=== PATIENT | male | born 1975 | race Caucasian/White ===

== ENCOUNTER → 2018-11-16 | Day surgery (SDC) | payer OTHER ==
[~2018-11-16] MED LIST: ASPIRIN 81 MG CHEWABLE TAB PO ONE; ATROPINE SULFATE 1 MG/10 ML SYR IVP ONE; ATROPINE SULFATE 1 MG/10 ML SYR ONE; DILTIAZEM 25 MG/5 ML VIAL IVP ONE; MIDAZOLAM 2 MG/2 ML VIAL ONE; NALOXONE HCL 0.4 MG/ML INJ IVP PRN; NS 1,000 ML IV ONE; NS 500 ML IV PRN; ONDANSETRON 4 MG/2 ML VIAL IVP PRN; PROPOFOL 200 MG/20 ML VIAL ONE; fentaNYL 100 MCG/2 ML INJ IVP PRN
--- NOTE | 2018-11-16 09:08 | EDPHY ---
HPI/HX/ROS/PE/MDM Narrative: CHIEF COMPLAINT: "I think I'm in a-fib" HISTORY OF PRESENT ILLNESS: This patient with history of atrial fibrillation s/p electrical cardioversion in 2016. He has felt well since that time. This morning upon waking, he felt as if he had developed atrial fibrillation again. He endorses chest tightness and shortness of breath. No syncope. No headache. Yesterday, he ate a lot of salty foods, and on Friday night, he consumed more alcohol than is typical for him. He cannot identify any other provocation for his symptoms. The patient was briefly anticoagulated following his initial episode of a-fib in 2016, but has been asymptomatic since that time and discontinued both his Eliquis and ASA. He did take ASA 81mg this morning. He has not followed up with cardiology since his presentation here in 2016, only with his primary care provider. No fever, chills, vomiting, diarrhea, urinary complaints, headache, lightheadedness. REVIEW OF SYSTEMS: A comprehensive 10 system review of systems is otherwise negative aside from elements mentioned in the history of present illness and medical decision making. PAST MEDICAL HISTORY: Atrial fibrillation. SOCIAL HISTORY: Employed. Lives in [place]. Does not abuse tobacco, drugs, or alcohol. VITAL SIGNS: Reviewed by me. BP 154/123. HR 150-170. GENERAL: Well-developed, well-nourished, resting comfortably in no respiratory distress. HEENT: Atraumatic. Eyes: No icterus, no injection. Mouth: moist mucous membranes. No erythema or lesions. Neck: supple with no adenopathy. LUNGS: Clear to auscultation bilaterally, no wheezes, rhonchi or rales. CARDIAC: irregularly irregular rate and rhythm, no rubs, murmurs or gallops. ABDOMEN: Soft, nontender, nondistended, bowel sounds normal. BACK: No CVA tenderness. EXTREMITIES: No trauma. No edema. Range of motion is normal throughout. NEURO: Alert and oriented, grossly nonfocal. SKIN: Warm and dry, no rash. PSYCHIATRIC: Normal mentation, no agitation. Portions of this note were transcribed by a coroner/medical examiner. I personally performed a history, physical exam, medical decision making, and confirmed accuracy of information the transcribed note. ED Course: This 43 y/o male presents in atrial fibrillation. Plan to administer 20mg IV diltiazem for rate control, 325mg PO ASA. Plan for EKG, labs including CBC, chemistries, coag panel, troponin. Patient notes he woke up during his ABBE in 2015, we will keep this under consideration should he undergo procedural sedation or other anesthesia today. Plan to consult with cardiology. Patient to be NPO. 12-LEAD EKG: Please see the full report in [facility]. My interpretation: Atrial fibrillation. Laboratory studies largely unremarkable. Troponin negative. Patient received 10 mg of diltiazem IV and his rate has been controlled the with average rate at 100. 9:36 Spoke with AYDE Moser for cardiology. She will evaluate the patient. 10:00 Cardiology has evaluated the patient. Patient scheduled to undergo ABBE and cardioversion later this morning. Patient was transferred to the [facility] lab for further care from Cardiology . MDM: Differential diagnoses for the patient's sensation of palpitations was considered including but not limited to sinus tachycardia, PACs, PVCs, SVT, atrial fibrillation, atrial flutter, anxiety, panic attack. - Data Points Laboratory Results: Laboratory Results 11/16/18 08:52 11/16/18 08:52 11/16/18 11/16/18 11/16/18 08:56 08:52 08:52 WBC RBC Hgb Hct MCV MCH MCHC RDW Plt Count MPV Neut % (Auto) Lymph % (Auto) Dewey % (Auto) Eos % (Auto) Baso % (Auto) Nucleat RBC Rel Count Absolute Neuts (auto) Absolute Lymphs (auto) Absolute Monos (auto) Absolute Eos (auto) Absolute Basos (auto) Absolute Nucleated RBC Immature Gran % Immature Gran # PT INR APTT Sodium 139 mEq/L mEq/L (135-145) Potassium 4.3 mEq/L mEq/L (3.5-5.2) Chloride 106 mEq/L mEq/L (97-110) Carbon Dioxide 24 mEq/l mEq/l (22-31) Anion Gap 9 mEq/L mEq/L (6-14) BUN 17 mg/dL mg/dL (7-23) Creatinine 1.0 mg/dL mg/dL (0.7-1.3) Estimated GFR > 60 Glucose 87 mg/dL mg/dL (70-100) Calcium 9.8 mg/dL mg/dL (8.5-10.4) POC Troponin I 0.03 ng/mL ng/mL (0.00-0.08) Troponin I < 0.012 ng/mL ng/mL (0.000-0.034) TSH 1.890 uIU/mL uIU/mL (0.465-4.680) 11/16/18 11/16/18 08:52 08:52 WBC 5.65 10^3/uL 10^3/uL (3.80-9.50) RBC 5.64 10^6/uL 10^6/uL (4.40-6.38) Hgb 17.5 g/dL g/dL (13.7-17.5) Hct 50.9 % % (40.0-51.0) MCV 90.2 fL fL (81.5-99.8) MCH 31.0 pg pg (27.9-34.1) MCHC 34.4 g/dL g/dL (32.4-36.7) RDW 12.6 % % (11.5-15.2) Plt Count 260 10^3/uL 10^3/uL (150-400) MPV 10.4 fL fL (8.7-11.7) Neut % (Auto) 56.9 % % (39.3-74.2) Lymph % (Auto) 27.8 % % (15.0-45.0) Dewey % (Auto) 11.2 % % (4.5-13.0) Eos % (Auto) 2.8 % % (0.6-7.6) Baso % (Auto) 1.1 % % (0.3-1.7) Nucleat RBC Rel Count 0.0 % % (0.0-0.2) Absolute Neuts (auto) 3.22 10^3/uL 10^3/uL (1.70-6.50) Absolute Lymphs (auto) 1.57 10^3/uL 10^3/uL (1.00-3.00) Absolute Monos (auto) 0.63 10^3/uL 10^3/uL (0.30-0.80) Absolute Eos (auto) 0.16 10^3/uL 10^3/uL (0.03-0.40) Absolute Basos (auto) 0.06 10^3/uL 10^3/uL (0.02-0.10) Absolute Nucleated RBC 0.00 10^3/uL 10^3/uL (0-0.01) Immature Gran % 0.2 % % (0.0-1.1) Immature Gran # 0.01 10^3/uL 10^3/uL (0.00-0.10) PT 12.6 SEC SEC (12.0-15.0) INR 0.92 (0.83-1.16) APTT 32.6 SEC SEC (23.0-38.0) Sodium Potassium Chloride Carbon Dioxide Anion Gap BUN Creatinine Estimated GFR Glucose Calcium POC Troponin I Troponin I TSH Medications Given: Discontinued Medications Aspirin (Aspirin) 324 mg PO EDNOW ONE Stop: 11/16/18 09:11 Last Admin: 11/16/18 09:16 Dose: 324 mg Diltiazem HCl (Cardizem 25 Mg/5 Ml Vial) 20 mg IVP EDNOW ONE Stop: 11/16/18 09:11 Last Admin: 11/16/18 09:14 Dose: 10 mg Sodium Chloride (Ns) 1,000 mls @ 0 mls/hr IV ONCE ONE; Wide Open PRN Reason: Protocol Stop: 11/16/18 09:12 Last Admin: 11/16/18 09:20 Dose: 1,000 mls Point of Care Test Results: Chemistry 11/16/18 08:56 POC Troponin I 0.03 ng/mL ng/mL (0.00-0.08) General Time Seen by Provider: 11/16/18 08:52 Initial Vital Signs: Initial Vital Signs Temperature (C) 36.7 C 11/16/18 08:42 Heart Rate 136 H 11/16/18 08:42 Respiratory Rate 18 11/16/18 08:42 Blood Pressure 207/139 H 11/16/18 08:42 O2 Sat (%) 97 11/16/18 08:42 O2 Delivery Mode Room Air Allergies/Adverse Reactions: No Known Allergies Allergy (Verified 11/16/18 08:42) Home Medications: Medication Instructions Recorded Apixaban [Eliquis] 5 mg PO BID #60 tab 11/16/18 Lisinopril 10 mg PO DAILY #30 tablet 11/16/18 Venlafaxine 25MG (*) 11/16/18 Departure - Departure Disposition: Home, Routine, Self-Care Clinical Impression: Atrial fibrillation Qualifiers: Atrial fibrillation type: paroxysmal Qualified Code(s): I48.0 - Paroxysmal atrial fibrillation Condition: Good Report Scribed for: Lydia Spaulding Report Scribed by: Yenny Cohen Date of Report: 11/16/18 Time of Report: 12:05
[2018-11-16 09:21] LABS: PLATELET COUNT 260 10^3/uL (150-400)
[2018-11-16 09:31] LABS: INR 0.92 (0.83-1.16); PROTIME(PATIENT) 12.6 SEC (12.0-15.0)
[2018-11-16 12:03] VITALS: BP 140/105
--- NOTE | 2018-11-16 13:57 | GCON ---
[f rep st] CONSULTATION CARDIOLOGY CONSULTATION DATE OF CONSULTATION: 11/16/2018 REFERRING PHYSICIAN: Lydia Spaulding MD REASON FOR CONSULTATION: We are asked by Dr. Spaulding to evaluate the patient for his atrial fibrill ation. HISTORY OF PRESENT ILLNESS: The patient is a 43-year-old male with a past medical history of atrial fibrillation. In 2016, he had palpitations upon awakening in the morning. This was in the setting o f having taken Sudafed the day before. He was treated with ABBE-guided cardioversion. At that time, the ABBE showed a normal EF with no significant valvular heart disease. Today, similarly, he awoke fe eling palpitations. He denies any associated chest pains, presyncope, syncope, or dyspnea. He had a little more alcohol than he would typically consume on Friday night. He has been told that his bl ood pressures have been higher over the past 6 months. He is not on any medications. This is couple d with recent weight gain. He has taken some extra doses of ibuprofen recently for a headache that h e was having yesterday. In general, he does not take doses of ibuprofen. PAST MEDICAL HISTORY: Paroxysmal atrial fibrillation. PAST SURGICAL HISTORY: Shoulder surgery. SOCIAL HISTORY: The patient is . He reports occasional alcohol. He is a nonsmoker. MEDICATIONS: Outpatient medications have yet to be reconciled. ALLERGIES: No known drug allergies. REVIEW OF SYSTEMS: As per HPI. A complete 10-point review of systems was obtained and was negative except for what was dictated. PHYSICAL EXAM: VITAL SIGNS: Blood pressure of 146/108, heart rate 108, respirations 18, and O2 satu ration 96% on room air. GENERAL: He is a very pleasant male in no apparent distress. HEENT: Head is normocephalic, atraumatic. Eyes are without scleral icterus. Mucous membranes moist. HEART: Ir regularly irregular with no rubs, gallops, or murmurs. LUNGS: Soft. Bowel sounds are present. ABD OMEN: Soft. : No [place]. SKIN: Warm and dry. PSYCHIATRIC: Normal mood and affect. NEUROLOGIC AL: No focal deficits detected. DIAGNOSTIC STUDIES: CBC with WBC 5.65, hemoglobin 17.5, hematocrit 50.9, and platelet count 260. BM P with sodium 139, potassium 4.3, chloride 106, CO2 or 24, BUN 17, creatinine 1, and glucose 87. Tro ponin less than 0.012. EKG, personally interpreted, reveals AFib with RVR. I have spoken with Dr. Luh Spaulding regarding the patient's care. IMPRESSION AND PLAN: The patient is a 43-year-old male with paroxysmal atrial fibrillation. He is c urrently symptomatic with palpitations. 1. Paroxysmal atrial fibrillation. We have reviewed options. The patient would like to proceed to a ABBE-guided cardioversion. Risks, benefits, and alternatives reviewed. We discussed Eliquis for at least 1 month post cardioversion. He is agreeable to this therapy. 2. Elevated blood pressures. We discussed the possible role of untreated hypertension in paroxysmal atrial fibrillation. We will consider starting antihypertensive therapy. 3. Possible sleep apnea. We discussed the role of this. He will consider getting an outpatient sle ep study. /[id number]/MODL
--- NOTE | 2018-11-16 15:25 | PDANEPAE ---
ANE Past Medical History - Pulmonary History Hx Oxygen in Use at Home: No - Endocrine History Hx Diabetes: No Obesity: mild ANE Review of Systems Review of Systems: ANE Patient History - Allergies Allergies/Adverse Reactions: No Known Allergies Allergy (Verified 11/16/18 08:42) - Home Medications Home medications: home medication list seen and reviewed Home Medications: Venlafaxine 25MG (*) 11/16/18 [Last Taken Unknown] - NPO status NPO Status: no food or drink >8 hours - Anes Hx Anes Hx: awareness under anesthesia (He recalls ABBE probe being inserted.) - Smoking Hx Smoking Status: Never smoked ANE Labs/Vital Signs - Labs Result Diagrams: 11/16/18 08:52 11/16/18 08:52 - Vital Signs Blood Pressure: 140/105 Heart Rate: 113 Respiratory Rate: 17 O2 Sat (%): 96 Height: 182.88 cm Weight: 98.883 kg ANE Physical Exam - Airway Neck exam: FROM Mallampati Score: Class 2 Mouth exam: normal dental/mouth exam - Pulmonary Pulmonary: no respiratory distress, no rales or rhonchi, clear to auscultation - Cardiovascular Cardiovascular: irregularly irregular - ASA Status ASA Status: II ANE Anesthesia Plan Anesthesia Plan: GA with mask
--- NOTE | 2018-11-16 16:15 | POSTANESTH ---
Post Anesthetic Evaluation Cardiovascular Status: Normal, Stable Respiratory Status: Normal, Stable, Similar to Pre-op Cond. Level of Consciousness/Mental Status: Can Participate in Eval, Moderately Sleepy Pain Control: Adequate, Prn Tx Ordered Nausea/Vomiting Control: Adequate, Prn Tx Ordered Complications Possibly Related to Anesthesia: None Noted
--- NOTE | 2018-11-16 16:17 | PDTEE1 ---
ABBE Cardioversion Procedure Procedure: electrical cardioversion, transesophageal echo Indications: atrial fibrillation Consent: signed and in chart Anticoagulation: eliquis Procedural Details: Pads were placed in anterior-posterior position. ABBE probe was advanced and standard images obtained. There is no evidence of left atrial or left atrial appendage thrombus. Synchronized cardioversion attempt #1: 200J Results: normal sinus rhythm Conclusions: successful ABBE cardioversion Patient Problems: Problems Problem Status Onset Atrial fibrillation Acute
--- NOTE | 2018-11-16 16:49 | ECHO ---
[email or web address] [address] Main: [phone] Fax: Transesophageal Echocardiography Name: CHERI MARSHALL MR#: [id number] Study Date: 11/16/2018 Study Time: 03:24 PM Date of : 1975 Age: 43 year(s) Height: ( ) Weight: ( ) BSA: Gender: Male Examination: ABBE Indication: Pre Cardioversion Image Quality: Contrast: Requested by: Sonia Howell Heart Rate: 162 bpm Rhythm: Atrial fibrillation BP: 170 mmHg/105 mmHg Procedure Staff [employer] Salesperson: Felice Triplett RDCS Reading Physician: Elizabeth Balderrama MD Requesting Provider: ABBE Exam Details Conclusions: Normal global systolic LV function. No regional wall motion abnormality. Normal size right ventricle. Normal RV function. An agitated saline study was performed and was negative for intracardiac shunting. No thrombus in left appendage. The mitral valve is normal in appearance and function. Proceeded with successful elective DC cardioversion.. Measurements: Chambers Valvular Assessment AV/MV Valvular Assessment TV/PV Normal Normal Normal Name Value Range Name Value Range Name Value Range Additional Measurements: Findings: Left Ventricle: Normal global systolic LV function. No regional wall motion abnormality. Right Ventricle: Normal size right ventricle. Normal RV function. Left Atrium: An agitated saline study was performed and was negative for intracardiac shunting. Patient: CHERI MARSHALL Study Date: 11/16/2018 Page 1 of 2 03:24 PM Left Atrial Appendage: Good color flow doppler in the left atrial appendage. No thrombus in left appendage. Right Atrium: The right atrium is normal in size. Mitral Valve: The mitral valve is normal in appearance and function. Trivial mitral valve regurgitation. Aortic Valve: The aortic valve is normal in appearance. The aortic valve is tri-leaflet. Tricuspid Valve: The tricuspid valve is normal in appearance and function. Pulmonic Valve: The pulmonic valve is normal in appearance and function. Aorta: The aorta is normal. Pericardium: No pericardial effusion. Exam Comments: Proceeded with successful elective DC cardioversion.. l1n (No Signature Object) Patient: CHERI MARSHALL Study Date: 11/16/2018 Page 2 of 2 03:24 PM [id number]
--- NOTE | 2018-11-17 02:59 | GHP ---
[f rep st] HISTORY AND PHYSICAL DATE OF ADMISSION: 11/16/2018 UPDATE: I have reviewed the consultation note from MONSE Moser, dated 11/16/2018. In summary, the patient is a 43-year-old male who presents with a second episode of atrial fibrillati on. He is symptomatic with this. Past medical history and medications are reviewed. He has had new-onset hypertension without current treatment. PHYSICAL EXAM: Reviewed. ASSESSMENT AND PLAN: 43-year-old male, stable for ABBE-guided cardioversion. Sedation provided by [facility] anesthesia service. Risks, benefits, and alternatives discussed with the patient. He agrees to pr oceed. This will serve as the history and physical update for ABBE cardioversion dated 11/16/2018. /[id number]/MODL
--- NOTE | 2018-11-17 16:52 | CPEKG ---
Test Reason : OPEN Blood Pressure : / mmHG Vent. Rate : 147 BPM Atrial Rate : 234 BPM P-R Int : 119 ms QRS Dur : 074 ms QT Int : 284 ms P-R-T Axes : 000 077 -11 degrees QTc Int : 445 ms Atrial fibrillation Probable anteroseptal infarct, old Borderline T abnormalities, inferior leads Confirmed by Lydia Spaulding ([id number]) on 11/17/2018 4:51:42 PM Referred By: Lydia Spaulding Confirmed By:Lydia Spaulding
--- NOTE | 2018-11-24 14:07 | CPEKG ---
Test Reason : Pre Cardioversion Blood Pressure : / mmHG Vent. Rate : 097 BPM Atrial Rate : 097 BPM P-R Int : 151 ms QRS Dur : 076 ms QT Int : 362 ms P-R-T Axes : 047 068 030 degrees QTc Int : 460 ms Sinus rhythm Probable anteroseptal infarct, old Confirmed by Yogesh Dietz ([id number]) on 11/24/2018 2:07:01 PM Referred By: Lydia Spaulding Confirmed By:Yogesh Dietz
== END | disposition home or self-care (01) ==
LOC: FSGY 08:41 → EDSTATUS 15:20 → FSGY 15:21
PROVIDERS: ATTEND Internal Medicine Cardiovascular Disease
DX: I48.0 Paroxysmal atrial fibrillation (principal); R03.0 Elevated blood-pressure reading, without diagnosis of hypertension; E86.9 Volume depletion, unspecified
CPT/HCPCS: 84484-ER; 96374; J0461; J2250; J2704